=== PATIENT | female | born 1975 | race American Indian/Alaskan Native ===

== ENCOUNTER 2016-12-22 13:11 | Emergency (ER) | payer MEDICAID ==
[2016-12-22 13:54] LABS: Basophils % (Auto) 1.2 % (0.0-1.8); Eosinophils % (Auto) 6.4 % (0.0-4.3); Hematocrit 41.5 % (30.3-42.9); Hemoglobin 13.8 gm/dl (10.1-14.3); Mean Corpuscular HGB Conc 33 % (30-34); Mean Corpuscular Hemoglobin 32 pg (28-32); Mean Corpuscular Volume 95 fl (79-97); Platelet Count 209 K/mm3 (140-440); Red Blood Count 4.38 M/mm3 (3.65-5.03); Red Cell Distribution Width 12.7 % (13.2-15.2); White Blood Count 6.6 K/mm3 (4.5-11.0)
[2016-12-22 14:05] VITALS: BP 126/64
[2016-12-22 14:12] LABS: Anion Gap 16 mmol/L; Blood Urea Nitrogen 7 mg/dL (7-17); Calcium 9.3 mg/dL (8.4-10.2); Carbon Dioxide 31 mmol/L (22-30); Glucose 93 mg/dL (65-100); Potassium 4.1 mmol/L (3.6-5.0); Sodium 146 mmol/L (137-145)
[2016-12-22] MEDS ORDERED: DUONEB *Not for PRN Use IH ONE (14:27)
--- NOTE | 2016-12-22 14:39 | Emergency Department Report ---
HPI - General Chief Complaint: Dyspnea/Respdistress Time Seen by Provider: 12/22/16 13:56 - HPI HPI: This is a 41-year-old female presents to the emergency department with complaint of a few days of uncontrolled blood pressure and some body swelling and some shortness of breath. Patient says that Monday night her blood pressure was 190/100 and last night it was 175/100 despite taking her hydrochlorothiazide and lisinopril. Yesterday she felt like her left leg and left hand were swollen and that has since resolved and now she feels like her right leg and right hand are swollen. She denies any fever, nausea, vomiting, diaphoresis. She has a past medical history of GERD, hypertension and gastroparesis. Her primary care physician is Dr. Zak Velásquez but she has not seen him regarding the symptoms. No recent travel or sick contacts at home. ED Past Medical Hx - Past Medical History Hx Hypertension: Yes Hx GERD: Yes Additional medical history: gastroparesis - Surgical History Additional Surgical History: umbilical hernia repair. right rotater cuff repair. hysterectomy - Social History Smoking Status: Current Every Day Smoker Substance Use Type: Marijuana - Medications Home Medications: Home Medications Medication Instructions Recorded Confirmed Last Taken Type ALBUTEROL Inhaler [ProAir HFA 2 puff IH QID PRN #1 inhalation 12/22/16 Unknown Rx Inhaler] ED Review of Systems ROS: Stated complaint: LEFT SIDE SWOLLEN Other details as noted in HPI Comment: All other systems reviewed and negative Constitutional: denies: chills, fever Eyes: denies: eye pain, eye discharge, vision change ENT: denies: ear pain, throat pain Respiratory: shortness of breath. denies: cough Cardiovascular: edema. denies: palpitations Gastrointestinal: denies: abdominal pain, nausea, diarrhea Genitourinary: denies: urgency, dysuria, discharge Musculoskeletal: denies: back pain, joint swelling, arthralgia Skin: denies: rash, lesions Neurological: denies: headache, weakness, paresthesias Physical Exam - Physical Exam Vital Signs: Vital Signs 12/22/16 12/22/16 12/22/16 13:23 14:04 14:05 Temperature 98.3 F 98.8 F Pulse Rate 71 66 Respiratory 17 18 18 Rate Blood Pressure 126/85 Blood Pressure 126/64 [Left] O2 Sat by Pulse 100 99 99 Oximetry Physical Exam: GENERAL: The patient is well-developed well-nourished. HENT: Normocephalic. Atraumatic. Patient has moist mucous membranes. EYES: Extraocular motions are intact. Pupils equal reactive to light bilaterally. NECK: Supple. Trachea is midline. CHEST/LUNGS: Clear to auscultation. There is no respiratory distress noted. There is some chest wall discomfort to palpation. No crepitus or deformity. HEART/CARDIOVASCULAR: Regular. There is no tachycardia. There is no gallop rub or murmur. ABDOMEN: Abdomen is soft, nontender. Patient has normal bowel sounds. There is no abdominal distention. SKIN: Skin is warm and dry. There is no appreciable edema. NEURO: The patient is awake, alert, and oriented. The patient is cooperative. The patient has no focal neurologic deficits. The patient has normal speech. MUSCULOSKELETAL: There is no tenderness or deformity. There is no limitation range of motion. There is no evidence of acute injury. ED Course Vital Signs 12/22/16 12/22/16 12/22/16 13:23 14:04 14:05 Temperature 98.3 F 98.8 F Pulse Rate 71 66 Respiratory 17 18 18 Rate Blood Pressure 126/85 Blood Pressure 126/64 [Left] O2 Sat by Pulse 100 99 99 Oximetry ED Medical Decision Making - Lab Data Result diagrams: 12/22/16 13:37 12/22/16 13:37 - EKG Data -: EKG Interpreted by Me EKG shows normal: sinus rhythm, axis, intervals, QRS complexes, ST-T waves Rate: normal - EKG Data When compared to previous EKG there are: previous EKG unavailable Interpretation: normal EKG - Radiology Data Radiology results: report reviewed, image reviewed interpreted by me: Chest x-ray does not show any acute process. There are no pleural effusions, obvious pneumonia and there is no pneumothorax. VQ scan is negative for pulmonary embolism. - Medical Decision Making 41-year-old female presents to the emergency department with the complaint of some shortness of breath and also complaint of some swelling that was on one side of her body and then switch to the other side. On physical exam she does not appear to be in any respiratory distress. There is no appreciable edema. Labs are mostly unremarkable. She had a slight elevation in her BNP but does not appear to be in congestive heart failure. She has a elevated equivocal d- dimer, and the CT angiography machine was down, so the patient had a VQ scan done that resulted as no pulmonary embolism. She received 1 or 2 breathing treatments while in the emergency department and upon reevaluation she is feeling improved. She has good follow-up with a primary care physician, Dr. Zak Velásquez. She will return to the ER with any worsening or symptoms of any acute distress. - Differential Diagnosis asthma, costochondritis, CHF, PE Critical Care Time: No Critical care attestation.: If time is entered above; I have spent that time in minutes in the direct care of this critically ill patient, excluding procedure time. ED Disposition Clinical Impression: Tobacco abuse Dyspnea Qualifiers: Dyspnea type: shortness of breath Qualified Code(s): R06.02 - Shortness of breath Edema Qualifiers: Edema type: unspecified Qualified Code(s): R60.9 - Edema, unspecified Disposition: DC-01 TO HOME OR SELFCARE Is pt being admited?: No Condition: Stable Instructions: Leg Edema (ED), Dyspnea (ED) Additional Instructions: This follow-up with a primary care physician in the next few days. Return to the emergency Department with any worsening of her symptoms or any acute distress. Prescriptions: ALBUTEROL Inhaler [ProAir HFA Inhaler] 2 puff IH QID PRN #1 inhalation PRN Reason: Shortness Of Breath Referrals: ZAK VELÁSQUEZ MD [Primary Care Provider] - 3-5 Days Time of Disposition: 19:42
--- NOTE | 2016-12-22 14:44 | XRay Report ---
ROUTINE CHEST, TWO VIEWS: History: Shortness of breath. PA and lateral views demonstrate the heart and mediastinal contour to be of normal size and shape. The lungs are clear and fully expanded and the soft tissues and bony structures are normal. IMPRESSION: Normal study.
--- NOTE | 2016-12-22 19:36 | Nuclear Medicine Report ---
FINAL REPORT EXAM: NM LUNG SCAN PERF/VENT HISTORY: elevated dimer, SOB TECHNIQUE: Ventilation-perfusion scan Perfusion study performed following intravenous administration 5 millicuries technetium MAA Ventilation study performed following 17 millicurie xenon 133 gas PRIORS: Correlated with chest radiograph same date FINDINGS: There is homogeneous distribution radiotracer on the ventilation study. There is normal distribution radiotracer on perfusion exam. No ventilation-perfusion mismatch identified. IMPRESSION: Negative. No scintigraphic evidence of acute pulmonary embolus
[2016-12-22] MEDS ORDERED: TORADOL IV ONE (19:44)
== END 2016-12-22 20:17 | disposition home or self-care (01) ==
LOC: ED 13:11
DX: R06.02 Shortness of breath (principal); R06.09 Other forms of dyspnea; K21.9 Gastro-esophageal reflux disease without esophagitis; I10 Essential (primary) hypertension; F17.200 Nicotine dependence, unspecified, uncomplicated; F12.10 Cannabis abuse, uncomplicated
CPT/HCPCS: 36415; 71020; 78582; 80048; 83880; 84484; 84703; 85025; 85379; 93005; 93010; 96374; 99284; A9540; A9558; J1885; 94640

== ENCOUNTER 2017-04-22 13:50 | Emergency (ER) | payer SELFPAY ==
--- NOTE | 2017-04-22 16:33 | Emergency Department Report ---
ED Female HPI - General Chief complaint: High BP Stated complaint: HIGH BP Time Seen by Provider: 04/22/17 16:26 Source: patient Mode of arrival: Ambulatory Limitations: No Limitations - History of Present Illness Initial comments: 41-year-old female past medical history gastroparesis, hypertension, total hysterectomy and oophrectomy presents with complaint of intermittent vaginal spotting for 1-2 weeks. Patient is awake alert and oriented 3 denies fevers chills nausea or vomiting. Denies dysuria or increased urinary frequency. Denies vaginal discharge. States she is not sexually active. Patient is ambulatory without assistance. States that it was light vaginal spotting a few episodes. Patient is also requesting refill on her losartan MD Complaint: vaginal discharge Onset/Timin -: week(s) Severity: mild Improves with: none Worsens with: none Are you Now?: No Associated Symptoms: vaginal bleeding - Related Data Sexually active: No Previous Rx's Medication Instructions Recorded Last Taken Type ALBUTEROL Inhaler [ProAir HFA 2 puff IH QID PRN #1 inhalation 12/22/16 Unknown Rx Inhaler] Losartan [Cozaar] 50 mg PO QDAY #30 tablet 04/22/17 Unknown Rx Allergies Allergy/AdvReac Type Severity Reaction Status Date / Time No Known Allergies Allergy Unverified 12/22/16 13:20 ED Review of Systems ROS: Stated complaint: HIGH BP Other details as noted in HPI Constitutional: denies: chills, fever Eyes: denies: eye pain, eye discharge, vision change ENT: denies: ear pain, throat pain Respiratory: denies: cough, shortness of breath, wheezing Cardiovascular: denies: chest pain, palpitations Endocrine: no symptoms reported Gastrointestinal: denies: abdominal pain, nausea, diarrhea Genitourinary: as per HPI, discharge (intermittent vaginal spotting). denies: urgency, dysuria Musculoskeletal: denies: back pain, joint swelling, arthralgia Skin: denies: rash, lesions Neurological: denies: headache, weakness, paresthesias Psychiatric: denies: anxiety, depression Hematological/Lymphatic: denies: easy bleeding, easy bruising ED Past Medical Hx - Past Medical History Previous Medical History?: Yes Hx Hypertension: Yes Hx GERD: Yes Additional medical history: gastroparesis - Surgical History Past Surgical History?: Yes Additional Surgical History: umbilical hernia repair. right rotater cuff repair. hysterectomy - Social History Smoking Status: Current Every Day Smoker Substance Use Type: Alcohol, Marijuana, Prescribed - Medications Home Medications: Home Medications Medication Instructions Recorded Confirmed Last Taken Type ALBUTEROL Inhaler [ProAir HFA 2 puff IH QID PRN #1 inhalation 12/22/16 Unknown Rx Inhaler] Losartan [Cozaar] 50 mg PO QDAY #30 tablet 04/22/17 Unknown Rx ED Physical Exam - General Limitations: No Limitations General appearance: alert, in no apparent distress - Head Head exam: Present: atraumatic, normocephalic - Eye Eye exam: Present: normal appearance, PERRL, EOMI - ENT ENT exam: Present: mucous membranes moist - Neck Neck exam: Present: normal inspection, full ROM - Respiratory Respiratory exam: Present: normal lung sounds bilaterally. Absent: respiratory distress - Cardiovascular Cardiovascular Exam: Present: regular rate, normal rhythm. Absent: systolic murmur, diastolic murmur, rubs, gallop - GI/Abdominal GI/Abdominal exam: Present: soft, normal bowel sounds - External exam: Present: normal external exam Speculum exam: Present: normal speculum exam Bi-manual exam: Present: cervical motion tendernes (slight cervical motion tenderness) - Extremities Exam Extremities exam: Present: normal inspection - Back Exam Back exam: Present: normal inspection - Neurological Exam Neurological exam: Present: alert, oriented X3 - Psychiatric Psychiatric exam: Present: normal affect, normal mood - Skin Skin exam: Present: warm, dry, intact, normal color. Absent: rash ED Course Vital Signs 04/22/17 13:57 Temperature 98.4 F Pulse Rate 110 H Respiratory 18 Rate Blood Pressure 121/78 O2 Sat by Pulse 99 Oximetry ED Medical Decision Making - Medical Decision Making A/P: Vaginal spotting, possible cervicitis, refill on losartan 1-as patient did have slight cervical motion tenderness we'll treat empirically for cervicitis. No adnexal pain. Minimal to no vaginal discharge. Wet prep negative. Chlamydia gonorrhea culture sent. Urinalysis unremarkable. Pelvic ultrasound shows previous hysterectomy but no free pelvic fluid. 2-follow up with primary care and [facility] 3-empiric treatment with azithromycin and ceftriaxone. 4- patient states that she has not filled her prescription for losartan because she does not want to pay for it. I advised patient and the long-term this can be dangerous for her health. I gave patient discount cards and advised her to continue taking her blood pressure medicine. Critical care attestation.: If time is entered above; I have spent that time in minutes in the direct care of this critically ill patient, excluding procedure time. ED Disposition Clinical Impression: Cervicitis, Medication refill Disposition: DC TO HOME OR SELFCARE Is pt being admited?: No Does the pt Need Aspirin: No Condition: Stable Instructions: Cervicitis (ED), Losartan (By mouth) Prescriptions: Losartan [Cozaar] 50 mg PO QDAY #30 tablet Referrals: [facility] [Provider Group] - 3-[address] [facility] [Outside] - 3-5 Days [facility] [Outside] - 3-5 Days Forms: STI Treatment and Prevention Time of Disposition: 18:32
[2017-04-22] MEDS ORDERED: COZAAR PO ONE (16:50)
[2017-04-22] MEDS ORDERED: NORCO 5/325 PO ONE (16:53)
[2017-04-22 17:37] LABS: Bacteria,Urine 1+ /HPF (Negative); Bilirubin,Urine NEG (Negative); Blood,Urine NEG (Negative); Ketones,Urine NEG (Negative); Leukocyte Esterase,Urine SM (Negative); Nitrite,Urine NEG (Negative); Protein,Urine <15 mg/dL mg/dL (Negative); Urobilinogen,Urine < 2.0 mg/dL (<2.0)
--- NOTE | 2017-04-22 18:22 | Ultrasound Report ---
FINAL REPORT EXAM: US TRANSVAGINAL HISTORY: pelvic pain, discharge, hx of total hysterectomy 2008 TECHNIQUE: Transabdominal and transvaginal pelvic ultrasound was performed. PRIORS: None. FINDINGS: The uterus and ovaries are absent. Vaginal cuff or residual cervix is seen. No adnexal mass is identified. No free fluid or fluid collection is seen. IMPRESSION: Total hysterectomy.
--- NOTE | 2017-04-22 18:23 | Ultrasound Report ---
FINAL REPORT EXAM: US PELVIC COMPLETE HISTORY: pelvic condition Visual discharge. TECHNIQUE: Transabdominal and transvaginal pelvic ultrasound was performed. PRIORS: None. FINDINGS: The uterus and ovaries are absent. Vaginal cuff or residual cervix is seen. No adnexal mass is identified. No free fluid or fluid collection is seen. IMPRESSION: Absent uterus and ovaries. No evidence of a mass.
[2017-04-22 18:43] VITALS: BP 124/79
[2017-04-22] MEDS ORDERED: ROCEPHIN IM ONE (18:46)
[2017-04-22] MEDS ORDERED: XYLOCAINE 1% MPF 5 mL INFILTRATI ONE (18:46)
[2017-04-22] MEDS ORDERED: ZITHROMAX PO ONE (18:46)
== END 2017-04-22 19:03 | disposition home or self-care (01) ==
LOC: ED 13:50
DX: I10 Essential (primary) hypertension (principal); K21.9 Gastro-esophageal reflux disease without esophagitis; F17.200 Nicotine dependence, unspecified, uncomplicated; F12.10 Cannabis abuse, uncomplicated; Z90.710 Acquired absence of both cervix and uterus
CPT/HCPCS: 76830; 76856; 81001; 87086; 87210; 87591; 96372; 99284; J0696